=== PATIENT | female | born 1995 | race Caucasian/White ===

== ENCOUNTER 2017-02-08 10:08 | Day surgery (SDC) | payer BC, OTHER ==
--- NOTE | 2017-02-04 09:36 | PDGENHP ---
History and Physical - Chief Complaint Left Hip Pain - History of Present Illness 1. Left~Femoroacetabular impingement (CHUNG) Mixed type, labral tear 2. S/P Right Hip Scope on 07/09/2016 HISTORY OF PRESENT ILLNESS: Yazminis a 21 y.o.~very ~active female~who I have had the pleasure to consult on today.~I have enjoyed meeting her. She~lives in [place]. 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 ~She~is single; she~has no~children. ~Yazminenjoys running (she is pursing post-collegiate running, 5K - 10K). Mary's Left~hip pain started April~2015, with no~recalled trauma or injury. She does note that she has had clicking in both hips for several years. Yazmindoes not have~a known history of hip dysplasia. She saw Dr. Uche Murrell in [place] who diagnosed her with bilateral CHUNG and performed a Right hip scope on 07/09/2016. She states that her recovery went very well and her Right hip feels very good now. Presentation today is of~anterior LEFT hip pain. ~The hip does~occasionally wake her~at night~if she moves wrong. ~The hip does~click and catch on her. Sitting can be uncomfortable~for her. Yazmindoes not~report suffering from lower back pain episodes. Yazminhas~participated in physical therapy and has~tried other conservative measures including a cortisone injection 6-8 weeks ago which provided significant relief for 2 days. She~has not~received sufficient symptomatic improvement. Yazminhas not~utilized medication for pain management. Yazminunderstands that she~has a hip and pelvis problem which should be researched and wishes to get a better understanding of her~hip status, followed by an establishment of a treatment strategy, hoping she~would be able to get back to her~well being active life. History: Past medical history: ~ None which is relevant Relevant familial history: None which is relevant Past surgical history: No. Surgery Anesthesia Year Outcome 1 Left foot partial navicular resection General 2016 Good 2 Right Hip Scope General 2017 Good Yazmindenies problematic issues with general anesthesia in the past. I have reviewed, verified and agree with the past medical, surgical, family and social history. Current Medications:~has a current medication list which includes the following prescription(s): ferrous sulfate, ferrous sulfate, and fluticasone-salmeterol. ALLERGIES:~has No Known Allergies. Objective: Physical Examination: Yazminis 5~feet 4~inches tall and weighs~103~Lbs. Yazminis AAO x3; she~is well -nourished, in NAD. Skin is warm and dry. ~Breathing is non-labored. ~CV with RRR by pulse. Abdomen is soft, NTND. Currently, she~walks with a normal~gait. Trendelenburg sign is negative~and proprioception~is normal, both~sides. She~presents~with no~signs of joint laxity.~Beightons Score: 0 She~is fit looking. ~~ Lower spine examination is negative~for sciatic or femoral nerve irritation with negative~SLR &~femoral stretch tests. Range of motion of the spine is normal~for flexion, extension, and rotations, with no~associated pain. Strength, Sensation and pulses are normal - bilaterally Ankles and knees exams are normal~and no~mal-alignment is evident. She~has~right~0.5~cm short leg length discrepancy. Thigh circumference is symmetric~with no evidence for muscle atrophy~on both~ sides. Hip ROM (degrees): FL ER At 90~hip FL IR At 90~hip FL AB AD EX IR Neutral hip ER Neutral hip R 105 40 15 45 5 5 30 25 L 115 40 25 45 5 5 40 15 Specific hip and pelvis tests: Quadrant KATHY Roll Add. Longus R Negative Negative Negative Negative L +++ +++ Negative Negative Glut. Med ITB Pos. Imp R Negative 5/5 strength Negative 5/5 strength Negative L Negative 5/5 strength Negative 5/5 strength Negative Squeeze test measured normal Bony Symphysis pubis is pain free~to touch while concentric activity of the rectus abdominis, does not~produce pain at its insertion. Ilio Psos specific tests are negative for pain during cycling for both hips~ with no snap HF has good strength with pain on the left hip. Anterior~capsule tenderness on the Left Greater trochanteric burse is pain free~on both hips. Piriformis tests: FAIR is negative, with no~local signs of neuritis related to sciatic nerve. SIJs examination is normal~with normal~KATHY in relation and local tenderness. Hamstrings tests are negative~functional contraction and negative~tendinopathy both hips. On a daily basis, the following percentages reflect Mary's overall total pain: Deep hip: 100% Imaging: Radiology studies which I~have personally reviewed, analyzed and measured are below: XR: AP of the hip and pelvis: Performed in a good~technique Coccyx to pubic symphysis distance 1.9~cm. 5~degrees cephal [place]~Lines are preserved. No~Pathological signs are seen in the Symphysis Pubis. No~Pathological signs are seen at the Ischial~tuberosity. ~ Specific measurements show: NSA~ LCE Sourcil~Angle Sharp's angle Lat. Cam Lat. Pincer C.Over~sign Head~Coverage % ATDmm R N 37 -1 39 - + 12-12:30 N N L N 30 1 44 - + 12-1 N N Pos. wall sign ISS NAD ~~Dysplasia Comments R Negative Negative 9~mm Negative L Negative Negative 13~mm Negative Sclerosis Sup. Lat. OA Cysts Joint Space-WBZ Joint Space-Medial R Negative Negative Negative 3.9~mm 3.5~mm L Negative Negative Negative 4.5~mm 4.0~mm X Table lateral: Anterior cam lesion is seen~on both hips. Alpha Angle: ~ Right 57~dergrees Left 53~degrees MRI Left Hip~shows: Labral tear, cartilage intact, s/p surgical changes Right side Impression and plan:~ Mary~is a 21 y.o.~active female~suffering from symptomatic left~hip pain due to Left~Femoroacetabular impingement (CHUNG) Mixed type~causing significant disability to her~and altering~her~sport and life activities. Physical examination, imaging, and her~story correspond with the diagnosis mentioned above. I explained that femoroacetabular impingement (CHUNG) arises due to a bony or soft tissue conflict between the femur (ball) and acetabulum (socket) caused by an abnormality in the shape of the hip joint. Over time, repetitive impingement can result in damage to the labrum and adjacent surface cartilage within the socket, ultimately giving rise to progressive osteoarthritis of the hip. I explained that although a labral tear can be a source of pain, it is rarely the root of the problem and typically occurs secondary to an underlying abnormality in the shape and mechanics of the hip joint. ~ I reviewed conservative treatment options for CHUNG including activity modification to avoid positions of impingement, physical therapy, non-steroidal anti-inflammatory medications, and various injections (corticosteroid and PRP) aimed at reducing inflammation in the hip joint or/and preventing dynamic impingement. PRP injections may promote healing and reduce symptoms in certain cases but it will not repair chronically damaged tissue. Although these measures may help to buy time~and reduce current level of symptoms, they are not a definitive solution to the problem given the underlying abnormality in the shape of the hip joint. Patients who have failed conservative management and continue to experience symptoms are candidates for hip arthroscopy, a minimally invasive surgery that can definitively address the underlying problem. Hip arthroscopy typically includes treating the labrum with either repair or reconstruction of the torn labrum; as well as addressing the underlying abnormalities by restoring the normal shape to the hip joint. ~If the cartilage is damaged a Microfracture surgical procedure may also be necessary to help stimulate the growth of fibrocartilage. ~If a patient requires a labral reconstruction or a Microfracture, the initial rehabilitation from the surgery may take longer, but the [facility]ent[facility] results are typically favorable. I reviewed the technical aspects of hip arthroscopy including risks, benefits, and expected course of recovery. Mary~understands that hip arthroscopy is a minimally invasive outpatient procedure carried out through small incisions on the outer aspect of the hip joint. During surgery, the labral tear will be identified and either repaired or reconstructed~using bone anchors and suture material. Additionally, any excessive bone will be removed with a high-speed mae to reshape the hip joint and restore normal anatomy. Risks include infection, bleeding, injury to nearby nerves or vessels, stiffness, persistent pain, instability, venous thromboembolic disease, and traction related complications including temporary foot numbness. Rarely, revision surgery may be required to address these problems. Overall recovery takes approximately 4~~ 8~months depending on the extent of damage and degree of repair. In the event that the labral tissue quality is inadequate for successful repair and healing, Mary~understands that a labral reconstruction will be performed. This procedure entails placing a cadaver tissue graft within the hip joint and stabilizing it with bone anchors to build a new labrum. The overall recovery time for labral reconstruction is similar to that of labral repair, although the surgical procedure takes longer to perform. Yazminwill review the info presented. In order to obtain more detailed information regarding the alignment, orientation, and shape of the bony hip and pelvis I will order a CT scan to be performed. The results of the CT scan, including femoral torsion and acetabular version measured values and 3D images, will aid me in deciding on the best treatment strategy and surgical pre-planning. Yazminwill talk with our aeronautical test engineer about possible surgery dates. Yazminis happy with this plan. I have also supplied her~with handouts, outlining the expected surgical treatment and rehab involved. I wish~Yazminall the best, ~~ Jaswinder Sanchez MD History Information - Allergies/Home Medication List Allergies/Adverse Reactions: No Known Allergies Allergy (Unverified 01/05/17 11:01) Home Medications: Ferrous Sulfate 01/05/17 [Last Taken Unknown] I have personally reviewed and updated: medical history - Social History Smoking Status: Never smoked
[2017-02-08] MEDS ORDERED: BUPIVACAINE 0.25% 30 ML SDV ONE (10:16)
[2017-02-08] MEDS ORDERED: ceFAZolin 2 GM/DEXTROSE 100 ML IV ONE (10:25)
[2017-02-08] MEDS ORDERED: ACETAMINOPHEN 500 MG TAB PO ONE (10:25)
[2017-02-08] MEDS ORDERED: PREGABALIN 150 MG CAP PO ONE (10:25)
[2017-02-08] MEDS ORDERED: LIDOCAINE 1% 2 ML INJ ID PRN (10:26)
[2017-02-08] MEDS ORDERED: LR 1,000 ML IV ONE (10:26)
[2017-02-08] MEDS ORDERED: fentaNYL 100 MCG/2 ML INJ ONE ×2 (11:08→14:36)
[2017-02-08] MEDS ORDERED: PROPOFOL/EMULSION 500 MG/50 ML BOTTLE IV ONE (11:08)
[2017-02-08] MEDS ORDERED: MIDAZOLAM 2 MG/2 ML VIAL ONE (11:08)
[2017-02-08 11:11] VITALS: PULSE 41
[2017-02-08] MEDS ORDERED: KETOROLAC 30 MG/1 ML SDV ONE (11:41)
[2017-02-08] MEDS ORDERED: SUGAMMADEX SODIUM 200 MG/2 ML VIAL IVP ONE (11:41)
[2017-02-08] MEDS ORDERED: METOCLOPRAMIDE 10 MG/2 ML VIAL ONE (11:41)
[2017-02-08] MEDS ORDERED: RANITIDINE 50 MG/2 ML VIAL ONE (11:41)
[2017-02-08] MEDS ORDERED: ROCURONIUM 50 MG/5 ML VIAL ONE (11:41)
[2017-02-08] MEDS ORDERED: ONDANSETRON 4 MG/2 ML VIAL ONE ×3 (11:41→16:27)
[2017-02-08] MEDS ORDERED: GLYCOPYRROLATE 0.2 MG/1 ML VIAL ONE (11:41)
[2017-02-08] MEDS ORDERED: LIDOCAINE 2% 5 ML SDV ONE (11:41)
--- NOTE | 2017-02-08 11:45 | PDANEPAE ---
ANE Past Medical History - Cardiovascular History Hx Hypertension: No Hx Arrhythmias: No Hx Chest Pain: No Hx Coronary Artery / Peripheral Vascular Disease: No Hx CHF / Valvular Disease: No Hx Palpitations: No Cardiovascular History Comment: anemia-on supplement - Pulmonary History Hx COPD: No Hx Asthma/Reactive Airway Disease: No Hx Recent Upper Respiratory Infection: No Hx Oxygen in Use at Home: No Hx Sleep Apnea: No Sleep Apnea Screening Result - Last Documented: Negative - Neurologic History Hx Cerebrovascular Accident: No Hx Seizures: No Hx Dementia: No - Endocrine History Hx Diabetes: No - Renal History Hx Renal Disorders: No - Liver History Hx Hepatic Disorders: No - Neurological & Psychiatric Hx Hx Neurological and Psychiatric Disorders: No - Cancer History Hx Cancer: No - Congenital Disorder History Hx Congenital Disorders: No - GI History Hx Gastrointestinal Disorders: Yes Gastrointestinal History Comment: IBS . Gluten allergy - Other Health History Other Health History: L hip impingement - Chronic Pain History Chronic Pain: No - Surgical History Prior Surgeries: R hip scope Jun 2016. L ft-removal of foreign body(bone) 2015 ANE Review of Systems - Exercise capacity METS (RN): 6 METS ANE Patient History - Allergies Allergies/Adverse Reactions: No Known Allergies Allergy (Unverified 01/05/17 11:01) - Home Medications Home Medications: Ferrous Sulfate 01/05/17 [Last Taken Unknown] - NPO status NPO Since - Liquids (Date): 02/07/17 NPO Since - Liquids (Time): 21:00 NPO Since - Solids (Date): 02/07/17 NPO Since - Solids (Time): 20:00 - Smoking Hx Smoking Status: Never smoked ANE Labs/Vital Signs - Vital Signs Blood Pressure: 91/59 Heart Rate: 41 Respiratory Rate: 16 O2 Sat (%): 96 Height: 162.56 cm Weight: 47.174 kg ANE Physical Exam - Airway Mallampati Score: Class 1 Mouth exam: normal dental/mouth exam - Pulmonary Pulmonary: no respiratory distress, no rales or rhonchi, clear to auscultation - Cardiovascular Cardiovascular: regular rate and rhythym, no murmur, rub, or gallop, pulses symmetric bilaterally - ASA Status ASA Status: I ANE Anesthesia Plan Anesthesia Plan: general endotracheal anesthesia
[2017-02-08] MEDS ORDERED: PROPOFOL 200 MG/20 ML VIAL ONE (12:54)
[2017-02-08] MEDS ORDERED: HYDROCODONE/APAP 5/325 TAB PO PRN (13:07)
[2017-02-08] MEDS ORDERED: ONDANSETRON 4 MG/2 ML VIAL IVP PRN (13:07)
[2017-02-08] MEDS ORDERED: ALBUTEROL 3 ML DEYVIAL IH PRN (13:07)
[2017-02-08] MEDS ORDERED: NALOXONE HCL 0.4 MG/ML INJ IVP PRN (13:07)
[2017-02-08] MEDS ORDERED: PROMETHAZINE HCL 25 MG/ML INJ IVP PRN ×2 (13:07→15:59)
[2017-02-08] MEDS ORDERED: METOCLOPRAMIDE 10 MG/2 ML VIAL IVP PRN (13:07)
[2017-02-08] MEDS ORDERED: D5W LR 500 ML IV PRN (13:07)
[2017-02-08] MEDS ORDERED: LR 500 ML IV PRN (13:07)
[2017-02-08] MEDS ORDERED: ACETAMINOPHEN 500 MG TAB PO PRN (13:07)
[2017-02-08] MEDS ORDERED: fentaNYL 100 MCG/2 ML INJ IVP PRN (13:07)
[2017-02-08] MEDS ORDERED: MEPERIDINE 25 MG/ML SYR IVP PRN (13:07)
[2017-02-08] MEDS ORDERED: OXYCODONE/APAP 5/325 TAB PO PRN (13:07)
--- NOTE | 2017-02-08 14:33 | POSTANESTH ---
Post Anesthetic Evaluation Cardiovascular Status: Normal, Stable Respiratory Status: Normal, Stable Level of Consciousness/Mental Status: Can Participate in Eval Pain Control: Adequate, Prn Tx Ordered Nausea/Vomiting Control: Adequate, Prn Tx Ordered Complications Possibly Related to Anesthesia: None Noted
[2017-02-08] MEDS ORDERED: ONDANSETRON 4 MG/2 ML VIAL IVP ONE (16:00)
[2017-02-08] MEDS ORDERED: DEXAMETHASONE 4 MG/ML VIAL IVP PRN (16:00)
[2017-02-08] MEDS ORDERED: LR 500 ML IV ONE (16:00)
[2017-02-08 16:39] VITALS: RESP 15
[2017-02-08 19:02] VITALS: BP 86/51; O2SAT 98
[2017-02-08 19:04] VITALS: TEMP 98.2
== END 2017-02-08 18:00 | disposition home or self-care (01) ==
LOC: FSGY 10:08
PROVIDERS: ATTEND Orthopaedic Surgery Sports Medicine
PROC: 0SQB4ZZ Repair Left Hip Joint, Percutaneous Endoscopic Approach (ICD-10-PCS; principal; 2017-02-08 11:30)
DX: M24.152 Other articular cartilage disorders, left hip (principal); Q65.89 Other specified congenital deformities of hip
CPT/HCPCS: 29914; 29916; 76001; C1769; C1713; J0171; J0690; J1885; J2250; J2405; J2704; J2765; J2780; J3010

== ENCOUNTER → 2017-04-19 | Outpatient (CLI) | payer BC | LOC: FIMAGING 07:35 | PROVIDERS: ATTEND Physician Assistant | DX: R10.11 Right upper quadrant pain (principal) ==